=== PATIENT | female | born 1980 | race Caucasian/White ===

== ENCOUNTER → 2020-03-17 | Emergency (ER) | payer OTHER ==
[~2020-03-17] VITALS: Ht 165.1 cm; Wt 90.7 kg
== END | disposition home or self-care (01) ==
LOC: ER 08:43
DX: R10.2 Pelvic and perineal pain (principal); R10.31 Right lower quadrant pain; Z03.818 Encounter for observation for suspected exposure to other biological agents ruled out

== ENCOUNTER 2021-11-13 16:46 | Inpatient (IN) | payer OTHER ==
[~2021-11-13] VITALS: Ht 157.5 cm; Wt 70.8 kg
--- NOTE | 2021-11-13 16:52 | NUR ---
PTE ALERTA,ESTABLE Y ORIENTADA.ESTA REFIERE QUE DESDE EL MIERCOLES COMENZO CON EL DOLOR DE ESPALDA BAJA Y ESTA REFIERE QUE TIENE CISTITIS
--- NOTE | 2021-11-13 17:37 | NUR ---
EVALUA PTE. SE EDUCA SOBRE [place] MEDICO EL CUAL REFIERE COMPRENDER. SE REALIZAN MUESTRAS DE LABORATORIO BAJO MEDIDAS ASEPTICAS. SE ADMINISTRAN MEDICAMENTOS ELIECER ORDEN MEDICA. SE COORDINA CT. PTE MANEJADA POR .
--- NOTE | 2021-11-13 20:16 | NUR ---
PTE ES REEVALUADO POR ,KELLIE REALIZA ORDEN SE ADMINISTRA MEDICAMENTO EL CUAL PTE TOLERA.
[2021-11-17] MEDS ORDERED: INTESTINEX680 M1 PO (16:21)
[2021-11-17] MEDS ORDERED: LEVOFLOXACIN750 MG PO (16:21)
[2021-11-17] MEDS ORDERED: PEPCID AC20 MG PO (16:21)
== END 2021-11-17 19:03 | disposition home or self-care (01) | DRG 690 ==
LOC: ER 16:46 → MEDI 11-14 01:02
PROVIDERS: ADMIT Internal Medicine; ATTEND Internal Medicine
DX: N39.0 Urinary tract infection, site not specified (principal); B95.7 Other staphylococcus as the cause of diseases classified elsewhere; R30.0 Dysuria; E86.0 Dehydration; D72.828 Other elevated white blood cell count; N20.0 Calculus of kidney; Z20.822 Contact with and (suspected) exposure to COVID-19